=== PATIENT | female | born 1985 | race Two or more races ===

== ENCOUNTER 2024-04-22 04:42 | Inpatient (IN) ==
[2024-04-22] MEDS ORDERED: LIDOCAINE 1% LOCAL 20 ML VIAL INFIL PRN (05:56)
[2024-04-22] MEDS ORDERED: OXYTOCIN 30 UNITS/NSS 30 UNITS/500 ML BAG IV PRN ×2 (05:56→10:48)
--- NOTE | 2024-04-22 06:06 | History & Physical Report ---
Date of Service April 22, 2024 Assessment & Plan (1) Elderly primigravida: (2) Anemia affecting : Plan 39 yo G1 at 37 5/7 wga w/ srom VSS Fetus cat 1 Labor - SVE attempted and pt made good effort to tolerate but unable to reach cervix. Discussed option to walk and see if ctx become more regular and try again, stadol, epidural. She would like to try to walk to start GBS neg epidural prn History of Present Illness Chief Complaint: LOF Primary Care Provider: NO PCP 39 yo G1 at 37 5/7 wga presents w/ LOF since 4am. 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 cycles denies hx stis Allergies Allergy/AdvReac Type Severity Reaction Status Date / Time No Known Allergies Allergy Verified 04/22/24 05:08 Home Medications Medication Instructions Recorded Confirmed Type albuterol sulfate 90 mcg/actuation 2 puff inhalation QID PRN 04/12/24 04/22/24 History aerosol inhaler Shortness Of Breath Or Wheezing vit no.95-ferrous 1 tab PO DAILY 04/12/24 04/22/24 History fumarate 28 mg-folic acid 800 mcg tablet () iron sucrose 100 mg iron/5 mL 300 mg (15 mL) IV ONCE 1 dose 04/21/24 04/22/24 Rx intravenous solution (Venofer) Patient History Medical History (Updated 04/22/24 @ 05:08 by Lexis Tompkins, RN) Anemia getting iron transfusions Seasonal allergies Asthma History of chicken pox Surgical History S/P wisdom tooth extraction x1 Family History (Updated 10/01/23 @ 11:16 by April Hampton) Father Hypertension Hypercholesteremia Mother Rheumatoid arthritis Sister Hypercholesteremia Grandfather (Maternal) Prostate cancer Denies family history of Ovarian cancer Breast cancer Colorectal cancer Social History (Updated 04/22/24 @ 05:08 by Lexis Tompkins, RN) Smoking Status: Never smoker Do You Dip or Chew Tobacco: No; Hx Alcohol Use: No Hx Substance Use: No Preferred Language: Lao Communication Ability: Effective Aviation Program Manager Required: No Beliefs That Will Affect Care: None marital status: marital status details: [place] (40) [phone] Current Living Situation: Spouse Current Living Situation Comment: apartment with current occupational status: employed 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 Other Information That Helps Us Care for You: No Feels Safe at Home: Yes Safety Concerns: Feels Safe At This Time Assistive Devices: None Physical Exam Genitourinary: OB Exam Abdomen: + vertex Manual OB Exam: + amniotic fluid (grossly ruptured) nitrazine positive OB Exam Monitor Tracing: + external FHT monitor used, + external uterine monitor used (q6) and + category I (120/mod/+ac naresh/-decel) SVE attempted but unable to tolerate Results & Data Vital Signs (Past 12 Hours) Vital Signs Temp Pulse Resp BP O2 Del Method 04/22/24 05:09 98.1 F 18 Room Air 04/22/24 05:03 98.1 F 77 18 111/62 Laboratory Results OB Labs: Blood Type O Positive 10/08/23 Antibody Screen NEGATIVE 10/08/23 Hemoglobin 10.0 g/dl (12.0-16.0) L 04/14/24 Hematocrit 32.3 % (37.0-47.0) L 04/14/24 Mean Corpuscular Volume 89.4 fL (80.0-100.0) 10/08/23 Platelet Count 236 K/uL (130-400) 10/08/23 Rubella IgG Antibody Immune (Immune) 10/08/23 Rapid Plasma Reagin Nonreactive (Nonreactive) 10/08/23 Hepatitis B Surface Antigen. NON-REACTIVE (NON-REACTIVE) 10/08/23 Hepatitis C Antibody (EIA) NON-REACTIVE (NON-REACTIVE) 10/08/23 HIV (1&2) Ag and Ab Confirmation NON-REACTIVE (NON-REACTIVE) 10/08/23 Glucose 1 Hour 50 gm Load 100 mg/dl (70-130) 02/18/24 OB Optional Labs: Chlamydia trachomatis RNA Not Detected (NotDetected) 10/08/23 Neisseria gonorrhoeae RNA Not Detected (NotDetected) 10/08/23 Labs Reviewed: cfdna-low risk--mln GBS neg Coding Level of Care Code None Diagnoses Elderly primigravida O09.519 Anemia affecting O99.019
[2024-04-22 06:48] LABS: Hematocrit (blood only) 31.7 % (37.0-47.0); Hemoglobin 10.3 g/dl (12.0-16.0); Mean Corpuscular Hemoglobin 27.5 pg (25.0-34.0); Mean Corpuscular Hgb Conc 32.5 g/dL (32.0-36.0); Mean Corpuscular Volume 84.5 fL (80.0-100.0); Mean Platelet Volume 13.4 fL (9.4-12.4); Platelet Count 179 K/uL (130-400); RDW Coefficient of Variation 16.1 % (11.5-14.5); RDW Standard Deviation 48.3 fL (36.4-46.3); Red Blood Count 3.75 M/uL (4.20-5.40); White Blood Count 8.41 K/ul (4.8-10.8)
[2024-04-22] MEDS: LACTATED RINGER'S 1,000 ML IV PRN (08:50)
--- NOTE | 2024-04-22 09:07 | Anesthesiology Consultation ---
Date of Service April 22, 2024 Assessment & Plan (1) Encounter for pre-operative examination: Chart Review Chart Review: Acceptable Risk for Labor Epidural History Height/Weight Height: 5 ft 5 in Weight: 79.379 kg Allergies Allergy/AdvReac Type Severity Reaction Status Date / Time No Known Allergies Allergy Verified 04/22/24 05:08 Medications Home Medications Medication Instructions Recorded Confirmed Last Taken albuterol sulfate 90 mcg/actuation 2 puff inhalation QID PRN 04/12/24 04/22/24 03/29/24 18:00 aerosol inhaler Shortness Of Breath Or Wheezing vit no.95-ferrous 1 tab PO DAILY 04/12/24 04/22/24 04/21/24 fumarate 28 mg-folic acid 800 mcg tablet () iron sucrose 100 mg iron/5 mL 300 mg (15 mL) IV ONCE 1 dose 04/21/24 04/22/24 04/16/24 intravenous solution (Venofer) Active Medications Generic Name Dose Route Start Last Admin Trade Name Freq PRN Reason Stop Dose Admin Lactated Ringer's 1,000 mls @ 125 mls/hr 04/22/24 05:56 04/22/24 08:50 Lr IV 04/24/24 05:55 999 mls/hr .Q8H PRN Administration L&D Protocol Protocol Past Medical History Medical History Anemia getting iron transfusions Seasonal allergies Asthma History of chicken pox Past Family History Family History Father Hypertension Hypercholesteremia Mother Rheumatoid arthritis Sister Hypercholesteremia Grandfather (Maternal) Prostate cancer Denies family history of Ovarian cancer Breast cancer Colorectal cancer Past Surgical History Surgical History S/P wisdom tooth extraction x1 Social History Smoking Status: Never smoker Do You Dip or Chew Tobacco: No Hx Alcohol Use: No Hx Substance Use: No Physical Exam Vital Signs Last Vital Signs Temp 36.5 C 04/22/24 07:09 Pulse 81 04/22/24 07:11 Resp 20 04/22/24 07:09 BP 103/61 04/22/24 07:11 O2 Del Method Room Air 04/22/24 05:09 Testing Laboratory Results 04/22/24 06:01
[2024-04-22] MEDS: LIDOCAINE 2%/EPINEPHRINE 1:200,000 20 ML PF ONE (09:44)
[2024-04-22] MEDS: BUPIVACAINE 0.25% PF 30 ML VIAL ONE (09:44)
[2024-04-22] MEDS: fentaNYL citrate PF 100 MCG/2 ML VIAL ONE (09:44)
[2024-04-22] MEDS: fentANYL 2 MCG/ML BUPIVacaine 0.125%-NSS 100ML BAG ONE (09:45)
[2024-04-22] MEDS ORDERED: LIDOCAINE 2% MPF LOCAL 5 ML VIAL EPI PRN (09:46)
[2024-04-22] MEDS ORDERED: NALOXONE HCL 0.4 MG/1 ML VIAL/CARP IV PRN (09:46)
[2024-04-22] MEDS ORDERED: BUPIVACAINE 0.25% PF 30 ML VIAL EPI PRN (09:46)
[2024-04-22] MEDS ORDERED: ROPIVACAINE 0.5% PF 5 MG/ML 20 ML VIAL EPI PRN (09:46)
[2024-04-22] MEDS ORDERED: SODIUM CHLORIDE 0.9% PF INJ 10 ML VIAL EPI PRN (09:46)
[2024-04-22] MEDS ORDERED: ONDANSETRON INJ 2 MG/ML 2 ML VIAL IV PRN (09:46)
[2024-04-22] MEDS ORDERED: ePHEDrine sulfate 50 MG/ML AMP IV PRN (09:46)
[2024-04-22] MEDS ORDERED: NALOXONE HCL 1 MG in SODIUM CHLORIDE 0.9% 1,000 ML IV PRN (09:46)
[2024-04-22] MEDS ORDERED: fentaNYL citrate PF 100 MCG/2 ML VIAL EPI PRN (09:46)
[2024-04-22] MEDS: SODIUM CHLORIDE 0.9% PF INJ 10 ML VIAL ONE (10:39)
[2024-04-22] MEDS: ePHEDrine sulfate 50 MG/ML AMP ONE (10:39)
[2024-04-22] MEDS ORDERED: ALBUTEROL HFA 8 GM INHALER INH PRN (10:49)
[2024-04-22] MEDS: SODIUM CHLORIDE 0.9% PF INJ 10 ML VIAL EPI STA (11:13)
[2024-04-22] MEDS: fentaNYL citrate PF 100 MCG/2 ML VIAL EPI STA (11:13)
[2024-04-22] MEDS: LIDOCAINE 2%/EPINEPHRINE 1:200,000 20 ML PF EPI STA (11:13)
[2024-04-22] MEDS: BUPIVACAINE 0.25% PF 30 ML VIAL EPI STA (11:13)
[2024-04-22] MEDS: OXYTOCIN 30 UNITS/NSS 30 UNITS/500 ML BAG IV PRN (11:24)
--- NOTE | 2024-04-22 11:31 | Labor Progress Brief Note ---
Date of Service April 22, 2024 Subjective Reason For Note: Routine Evaluation patient now comfortable with epidural analgesia cervix exam- FT/50/-2/firm will begin pitocin augmentation at this time Assessment & Plan Admission and Anticipated Discharge Date Admission Date: April 22, 2024 Results & Data Vital Signs (Past 12 Hours) Vital Signs Temp Pulse Resp BP Pulse Ox O2 Del Method 04/22/24 11:28 75 96/59 L 04/22/24 11:26 80 99 04/22/24 11:21 76 99 04/22/24 11:16 83 99 04/22/24 11:13 77 96/60 L 04/22/24 11:11 83 99 04/22/24 11:06 85 100 04/22/24 11:01 92 H 100 04/22/24 10:58 82 102/64 04/22/24 10:56 82 100 04/22/24 10:51 87 100 04/22/24 10:46 94 H 100 04/22/24 10:42 85 100/61 04/22/24 10:41 79 99 04/22/24 10:36 86 99 04/22/24 10:31 79 99 04/22/24 10:27 86 97/58 L 04/22/24 10:26 80 99 04/22/24 10:21 81 99 04/22/24 10:16 78 99 04/22/24 10:12 88 100/57 L 04/22/24 10:11 83 99 04/22/24 10:08 81 99/59 L 04/22/24 10:06 79 99 04/22/24 10:03 81 103/55 L 04/22/24 10:01 81 99 04/22/24 09:59 78 100/53 L 04/22/24 09:56 83 99 04/22/24 09:51 82 102/62 04/22/24 09:49 77 101/62 04/22/24 09:48 82 98 04/22/24 09:47 83 99/64 L 04/22/24 09:45 86 96/62 L 04/22/24 09:43 88 100/67 99 04/22/24 09:41 74 95/57 L 04/22/24 09:37 81 114/67 04/22/24 09:35 96 H 100 04/22/24 09:34 92 H 83 L 04/22/24 09:30 88 122/82 04/22/24 07:11 81 103/61 04/22/24 07:09 20 04/22/24 07:09 97.7 F 20 04/22/24 05:09 98.1 F 18 Room Air 04/22/24 05:03 98.1 F 77 18 111/62 Coding Level of Care Code None
[2024-04-22] MEDS: fentANYL 2 MCG/ML BUPIVacaine 0.125%-NSS 100ML BAG EPI PRN (18:39)
--- NOTE | 2024-04-23 10:53 | History & Physical Bridge Note ---
Date of Service April 23, 2024 History & Physical Bridge Note I have examined the patient, reviewed the History & Physical and in the interval since the performance of the History & Physical I have noted the following changes of clinical significance: no changes noted Discussed with patient - resuscitative measures were working for FHT, however baby has now had 3 prolonged decelerations with slow return to baseline. Given that delivery would be remote at this point, since station is not low, recommend delivery by section. She is agreeable. Reviewed consent, questions answered. Will proceed to OR for delivery by section at this time.
[2024-04-23] MEDS ORDERED: OXYTOCIN 10 UNITS/ML VIAL ONE ×2 (10:55→11:55)
[2024-04-23] MEDS: CITRIC ACID/SODIUM CITRATE 15 ML UDC PO SCH (10:56)
[2024-04-23] MEDS ORDERED: ceFAZolin 330 MG/ML 1 GM VIAL ONE (11:16)
[2024-04-23] MEDS ORDERED: ONDANSETRON INJ 2 MG/ML 2 ML VIAL ONE (11:16)
[2024-04-23] MEDS ORDERED: MoRPHine SULFATE PF 1 MG/ML 10 ML AMP/VIAL ONE (11:27)
[2024-04-23 11:36] LABS: Base Excess Cord Arterial Bld -4.5 mEq/L (-9-1.8); Base Excess Cord Venous Blood -3.9 mEq/L (-7.7-1.9); CO2 Cord Arterial Blood 57 mmHg (39.1-73.5); Cord Venous Blood HCO3 22 mmol/L (18.4-26.8); Cord Venous Blood PCO2 40 mmHg (30.4-57.2); Cord Venous Blood PO2 35 mmHg (14.1-43.3); Cord Venous Blood pH 7.34 (7.20-7.44); HCO3 Cord Arterial Blood 24 mmol/L (19.7-28.5); O2 Saturation Cord Venous Bld 67.6 % (<68); Oxygen Sat Cord Arterial Blood < 60.0 % (<60); PO2 Cord Arterial Blood 23 mmHg (4.1-31.7); pH Cord Arterial Blood 7.23 (7.1-7.38)
[2024-04-23] MEDS ORDERED: KETAMINE HCL 10MG/ML SYR ONE (11:41)
[2024-04-23] MEDS ORDERED: PHENYLEPHRINE 100MCG/ML 10ML SYR IV ONE (11:50)
--- NOTE | 2024-04-23 12:18 | Operative Report ---
Post Operative Report Pre & Post Diagnosis Operation Date: 04/23/24 11:00 Pre: Spontaneous premature rupture of membranes, intolerance to labor Post: Same I identified the patient and participated in the time-out.: Yes Procedure Operation Date: 04/23/24 11:00 Actual Procedures Primary Low T-Vertical Section in LD, delivery of live male child at 1113 - Denita Decker DO Surgeon Denita Decker, Wire Mesh Knitter Reginaldo Hernández MD Quantitative Blood Loss (QBL) 700 Findings Consistent with Post-Op Diagnosis Viable male , Apgars 1, 1, 2. Weight pending, please see nursery records. Normal appearing uterus, fallopian tubes, ovaries. Specimens cord blood, cord gas, placenta Drains skaggs clear yellow Anesthesia Type Labor Epidural Complications none Disposition Accompanied Patient To Recovery: No Disposition: L&D Indications 39yo @ 37 6/7, was admitted to L&D yesterday after spontaneous PROM. Labor was augmented and she progressed to complete dilation and was starting to push. I recommended that she stop the pitocin and undergo resuscitative measures to improve late decelerations. Discussed with patient that after resuscitation, we could attempt pushing again or if no improvement in heart tracing would need to proceed to section. Once we stopped the pitocin and repositioned the patient, these interventions were successful to improve FHT to Category 1. However, prior to being able to resume pushing, patient then developed prolonged decelerations - and I advised patient and that we needed to proceed at this time with delivery via section. Another was being done in the L&D OR, so we proceeded to the Main OR for delivery for intolerance to labor. Description of Procedure The patient was seen in her labor and delivery room, risks benefits and alternatives to surgery were reviewed. Informed consent obtained. Questions were answered. She was taken to the operating room, spinal anesthesia was administered. She was then prepared and draped in the usual sterile fashion in the supine position with a leftward tilt. Timeout was confirmed. A Pfannenstiel skin incision was made with a scalpel, and carried through to the underlying layer of fascia. Fascia was nicked at midline, and this incision was extended bilaterally. The superior aspect of the fascial incision was grasped with Stuart clamps x2, elevated off the underlying rectus abdominis muscles, and dissected sharply and bluntly. In similar fashion, the inferior aspect of the fascial incision was dissected. The rectus abdominis muscles were , and the peritoneum was entered bluntly digitally. This was extended bilaterally. The bladder flap was not taken down. Using a new scalpel, a low transverse uterine incision was created. The head was wedged in the pelvis. arm delivered through hysterotomy. On first attempt, I was unable to get the head delivered, therefore the uterus was T'd with bandage scissors and the baby was delivered breech - legs first, then body, then head. No nuchal noted. The was briefly stimulated on the field - had tone but no crying. The cord was doubly clamped and cut, and the infant immediately was handed off to the waiting research and development researcher. A segment was retained for cord gases. True knot noted in the cord. Cord blood was obtained. The placenta was delivered spontaneously intact. The uterus was exteriorized, and cleared of all clots and debris. The hysterotomy incision was reapproximated using 0 Vicryl in a running locked stitch. The vertical portion of the incision was closed with 3-layer closure, with two layers of 0-Vicryl, followed by baseball serosal stitch 2-0 Vicryl. A second layer of 0-Vicryl was used to imbricate the horizontal incision. Posterior uterus was evaluated and normal. The uterus was returned to the abdomen, and gutters were cleared of clots and debris. Excellent hemostasis was observed. The fascial incision was reapproximated using 0 Vicryl in a running stitch. The subcutaneous tissue was irrigated, and reapproximated using 2-0 plain gut in a running stitch. The skin was reapproximated using 4-0 Vicryl in a running subcuticular stitch. Steri-Strips and a bandage were applied. The patient tolerated the procedure well, and will be taken to the recovery area in stable and good condition. I attest to the content of the Intraoperative Record and any orders documented therein. Any exceptions are noted below. OB Procedure Charges 76662
[2024-04-23] MEDS ORDERED: ONDANSETRON INJ 2 MG/ML 2 ML VIAL IV PRN (12:45)
[2024-04-23] MEDS ORDERED: DC INTRASPINAL MORPHINE SCH (12:45)
[2024-04-23] MEDS ORDERED: NALOXONE HCL 0.08 MG in SYRINGE 1.8 ML IV PRN (12:45)
[2024-04-23] MEDS ORDERED: NALOXONE HCL 0.4 MG/1 ML VIAL/CARP IV PRN (12:45)
[2024-04-23] MEDS ORDERED: NALBUPHINE HCL 5 MG in SYRINGE 0 ML IV PRN (12:45)
[2024-04-23] MEDS ORDERED: NO NARCOTICS OR SEDATIVES SCH (12:45)
[2024-04-23] MEDS ORDERED: LACTATED RINGER'S 500 ML IV PRN (12:45)
[2024-04-23] MEDS ORDERED: PROMETHAZINE HCL 6.25 MG in SODIUM CHLORIDE 0.9% 50 ML IV PRN (12:45)
[2024-04-23] MEDS ORDERED: NALOXONE HCL 1 MG in SODIUM CHLORIDE 0.9% 1,000 ML IV PRN (12:45)
[2024-04-23] MEDS ORDERED: diphenhydrAMINE 50 MG/ML VIAL IV PRN (12:45)
[2024-04-23] MEDS ORDERED: ePHEDrine sulfate 50 MG/ML AMP IV PRN (12:45)
--- NOTE | 2024-04-23 12:46 | Anesthesia Procedure Note ---
Date of Service April 23, 2024 Anesthesia Post Epidural Note Vital Signs Vital Signs: Temp Pulse Resp BP Pulse Ox O2 Del Method 36.6 C 107 H 18 104/63 100 Room Air 04/23/24 12:20 04/23/24 12:41 04/23/24 12:20 04/23/24 12:41 04/23/24 12:40 04/22/24 19:15 Notes Mental Status: alert / awake / arousable and participated in evaluation Patient Amnestic to Procedure: No Nausea / Vomiting: adequately controlled Pain: adequately controlled Airway Patency, RR, SpO2: stable & adequate BP & HR: stable & adequate Hydration State: stable & adequate Neuraxial Anesthesia: was administered and sensory block is resolving Anesthetic Complications: no major complications apparent and Pt Satisfied with anesthetic care Epidural: Removed without complications and With tip intact
--- NOTE | 2024-04-23 12:55 | Anesthesiology Progress Note ---
Date of Service April 23, 2024 Anesthesia Post Procedure Vital Signs Vital Signs: Temp Pulse Resp BP Pulse Ox O2 Del Method 04/23/24 12:41 107 H 104/63 04/23/24 12:40 110 H 100 04/23/24 12:35 111 H 100 04/23/24 12:31 109 H 106/60 04/23/24 12:30 110 H 100 04/23/24 12:25 119 H 100 04/23/24 12:20 36.6 C 18 04/23/24 12:20 115 H 100 04/23/24 12:17 122 H 95/50 L 04/23/24 12:16 121 H 96/54 L 04/23/24 12:15 123 H 99 04/23/24 10:58 146 H 04/23/24 10:58 37.1 C 144 H 20 138/81 100 04/23/24 10:53 115 H 100 04/23/24 10:48 114 H 100 04/23/24 10:43 113 H 118/67 100 04/23/24 10:38 111 H 100 04/23/24 10:33 122 H 100 04/23/24 10:28 91 H 119/64 100 04/23/24 10:23 91 H 100 04/23/24 10:18 95 H 100 04/23/24 10:13 96 H 120/69 100 04/23/24 10:08 95 H 100 04/23/24 10:03 97 H 100 04/23/24 09:58 99 H 118/67 100 04/23/24 09:53 90 100 04/23/24 09:48 88 100 04/23/24 09:44 92 H 117/66 04/23/24 09:43 97 H 100 04/23/24 09:38 99 H 98 04/23/24 09:33 91 H 97 04/23/24 09:28 92 H 112/65 97 04/23/24 09:23 99 H 98 04/23/24 09:18 100 H 97 04/23/24 09:13 97 04/23/24 09:13 111 H 04/23/24 09:13 117 H 109/66 04/23/24 09:10 116 H 85 L 04/23/24 09:08 109 H 98 04/23/24 09:03 110 H 97 04/23/24 09:02 18 06/26/24 09:02 37.4 C 18 04/23/24 08:58 94 H 20 114/63 97 04/23/24 08:53 106 H 96 04/23/24 08:50 92 H 93 04/23/24 08:48 91 H 96 04/23/24 08:44 91 H 93 04/23/24 08:43 90 107/58 L 96 04/23/24 08:38 92 H 97 04/23/24 08:37 95 H 94 04/23/24 08:33 101 H 96 04/23/24 08:28 107 H 117/62 97 04/23/24 08:23 99 H 97 04/23/24 08:18 97 H 98 04/23/24 08:14 100 H 20 114/62 04/23/24 08:13 108 H 97 04/23/24 08:08 116 H 96 04/23/24 08:03 121 H 98 04/23/24 08:00 115 H 115/76 04/23/24 07:58 111 H 97 04/23/24 07:56 125 H 90 04/23/24 07:53 120 H 97 04/23/24 07:48 138 H 98 04/23/24 07:43 120 H 04/23/24 07:43 138 H 105/60 99 04/23/24 07:38 127 H 99 04/23/24 07:33 119 H 98 04/23/24 07:27 125 H 04/23/24 07:27 123 H 118/59 L 98 04/23/24 07:21 120 H 100 04/23/24 07:16 119 H 99 04/23/24 07:13 114 H 20 124/65 04/23/24 07:11 136 H 98 04/23/24 07:06 131 H 98 04/23/24 07:01 102 H 99 04/23/24 06:57 36.5 C 115 H 20 108/56 L 04/23/24 06:56 111 H 99 04/23/24 06:51 96 H 97 04/23/24 06:46 124 H 97 04/23/24 06:43 121 H 108/55 L 04/23/24 06:41 136 H 98 04/23/24 06:37 151 H 88 L 04/23/24 06:36 129 H 98 06/26/24 06:31 133 H 98 04/23/24 06:26 155 H 99 04/23/24 06:24 152 H 86 L 04/23/24 06:21 159 H 99 04/23/24 06:16 121 H 98 04/23/24 06:14 123 H 107/54 L 04/23/24 06:11 106 H 96 04/23/24 06:06 97 H 97 04/23/24 06:01 100 H 97 04/23/24 05:58 96 H 110/64 04/23/24 05:57 18 04/23/24 05:57 37.4 C 18 04/23/24 05:56 112 H 96 04/23/24 05:51 125 H 97 04/23/24 05:46 115 H 98 04/23/24 05:44 101 H 117/61 04/23/24 05:41 107 H 95 04/23/24 05:36 96 H 96 04/23/24 05:31 111 H 98 04/23/24 05:28 120 H 99/54 L 04/23/24 05:26 95 H 97 04/23/24 05:21 113 H 98 04/23/24 05:16 101 H 97 04/23/24 05:13 96 H 109/56 L 04/23/24 05:11 108 H 98 04/23/24 05:06 100 H 97 04/23/24 05:01 105 H 98 04/23/24 04:57 113 H 113/61 04/23/24 04:56 106 H 98 04/23/24 04:51 104 H 98 04/23/24 04:46 112 H 99 04/23/24 04:45 18 04/23/24 04:45 37.2 C 18 04/23/24 04:42 114 H 115/60 04/23/24 04:41 100 H 97 04/23/24 04:36 94 H 98 04/23/24 04:31 103 H 97 04/23/24 04:27 103 H 111/60 04/23/24 04:26 106 H 99 04/23/24 04:21 98 H 99 04/23/24 04:16 96 H 98 04/23/24 04:13 95 H 113/60 04/23/24 04:11 105 H 98 04/23/24 04:06 101 H 98 06 04:01 98 H 98 04/23/24 03:57 103 H 110/63 06 03:56 94 H 99 04/23/24 03:51 103 H 99 04/23/24 03:46 102 H 99 04/23/24 03:43 101 H 112/63 04/23/24 03:41 101 H 98 04/23/24 03:36 118 H 97 04/23/24 03:31 99 H 97 04/23/24 03:28 18 04/23/24 03:28 37.3 C 96 H 18 112/64 04/23/24 03:26 106 H 98 04/23/24 03:21 114 H 97 04/23/24 03:16 113 H 97 04/23/24 03:13 110 H 114/67 04/23/24 03:11 99 H 98 04/23/24 03:06 95 H 96 04/23/24 03:01 110 H 98 04/23/24 02:58 98 H 117/64 04/23/24 02:56 109 H 97 04/23/24 02:51 96 H 98 04/23/24 02:46 104 H 98 04/23/24 02:42 113 H 114/66 04/23/24 02:41 94 H 97 04/23/24 02:36 113 H 98 04/23/24 02:31 98 H 99 04/23/24 02:30 18 04/23/24 02:30 37.1 C 18 04/23/24 02:27 104 H 114/68 04/23/24 02:26 110 H 99 04/23/24 02:21 99 H 99 04/23/24 02:16 121 H 98 04/23/24 02:12 108 H 112/68 04/23/24 02:11 118 H 100 04/23/24 02:06 99 H 100 04/23/24 02:01 101 H 100 04/23/24 01:57 106 H 116/70 04/23/24 01:56 94 H 100 04/23/24 01:51 102 H 98 04/23/24 01:46 105 H 98 04/23/24 01:43 98 H 119/67 04/23/24 01:42 18 04/23/24 01:42 36.9 C 18 04/23/24 01:41 105 H 100 04/23/24 01:36 99 H 99 04/23/24 01:31 94 H 99 04/23/24 01:28 99 H 128/76 04/23/24 01:26 102 H 99 04/23/24 01:21 95 H 100 04/23/24 01:16 101 H 100 04/23/24 01:12 100 H 133/72 04/23/24 01:11 90 100 04/23/24 01:06 97 H 100 04/23/24 01:01 98 H 100 04/23/24 00:58 95 H 133/73 04/23/24 00:56 97 H 100 04/23/24 00:51 97 H 100 04/23/24 00:46 106 H 100 04/23/24 00:42 101 H 130/77 04/23/24 00:41 98 H 100 04/23/24 00:36 103 H 100 04/23/24 00:31 100 H 100 04/23/24 00:29 99 H 123/68 04/23/24 00:26 102 H 100 04/23/24 00:21 87 100 04/23/24 00:16 88 100 04/23/24 00:13 86 120/74 04/23/24 00:11 78 100 04/23/24 00:06 113 H 100 04/23/24 00:01 90 100 04/22/24 23:58 90 125/80 04/22/24 23:56 82 100 04/22/24 23:51 82 100 04/22/24 23:46 90 99 04/22/24 23:45 18 04/22/24 23:45 37.1 C 18 04/22/24 23:43 86 118/75 04/22/24 23:41 83 100 04/22/24 23:36 91 H 99 04/22/24 23:31 91 H 100 04/22/24 23:28 89 119/72 04/22/24 23:26 87 98 04/22/24 23:21 89 100 04/22/24 23:16 83 100 04/22/24 23:12 83 111/72 04/22/24 23:11 87 99 04/22/24 23:06 93 H 100 04/22/24 23:01 88 100 04/22/24 22:57 96 H 115/70 04/22/24 22:56 97 H 100 04/22/24 22:51 89 100 04/22/24 22:46 97 H 99 04/22/24 22:43 90 114/72 04/22/24 22:41 92 H 99 04/22/24 22:36 91 H 100 04/22/24 22:31 92 H 100 04/22/24 22:29 95 H 112/65 04/22/24 22:26 95 H 99 04/22/24 22:21 37.1 C 100 H 18 99 04/22/24 22:16 91 H 99 04/22/24 22:14 89 110/65 04/22/24 22:11 93 H 98 04/22/24 22:06 87 98 04/22/24 22:01 92 H 99 04/22/24 21:57 96 H 111/68 04/22/24 21:56 91 H 100 04/22/24 21:51 95 H 100 04/22/24 21:46 88 100 04/22/24 21:43 85 114/66 04/22/24 21:41 88 100 04/22/24 21:36 89 100 04/22/24 21:31 85 100 04/22/24 21:30 18 04/22/24 21:30 18 04/22/24 21:29 83 104/60 04/22/24 21:26 85 100 04/22/24 21:21 93 H 99 04/22/24 21:16 87 100 04/22/24 21:14 82 113/70 04/22/24 21:11 84 99 04/22/24 21:06 89 100 04/22/24 21:01 85 99 04/22/24 20:57 86 106/65 04/22/24 20:56 85 98 04/22/24 20:51 83 99 04/22/24 20:46 86 100 04/22/24 20:42 82 112/71 04/22/24 20:41 102 H 97 04/22/24 20:40 18 04/22/24 20:40 37.0 C 18 04/22/24 20:36 102 H 100 04/22/24 20:31 89 100 04/22/24 20:27 85 113/69 04/22/24 20:26 89 100 04/22/24 20:21 92 H 100 04/22/24 20:16 90 100 04/22/24 20:12 90 108/68 04/22/24 20:11 90 100 04/22/24 20:06 87 100 04/22/24 20:01 91 H 100 04/22/24 19:58 90 113/68 04/22/24 19:56 90 99 04/22/24 19:51 94 H 99 04/22/24 19:50 96 H 114/71 04/22/24 19:46 91 H 100 04/22/24 19:44 100 H 83/58 L 04/22/24 19:43 94 H 77/59 L 04/22/24 19:41 85 98 04/22/24 19:36 91 H 98 04/22/24 19:31 93 H 99 04/22/24 19:28 94 H 89/55 L 04/22/24 19:26 90 98 04/22/24 19:21 87 99 04/22/24 19:16 91 H 99 04/22/24 19:15 37.0 C 18 Room Air 04/22/24 19:13 91 H 90/55 L 04/22/24 19:11 83 99 04/22/24 19:06 82 98 04/22/24 19:01 87 99 04/22/24 18:58 85 98/56 L 04/22/24 18:56 88 99 04/22/24 18:51 93 H 99 04/22/24 18:46 90 99 04/22/24 18:42 83 95/56 L 04/22/24 18:41 85 100 04/22/24 18:36 89 99 04/22/24 18:33 85 96/54 L 04/22/24 18:31 95 H 99 04/22/24 18:30 20 04/22/24 18:30 37.0 C 20 04/22/24 18:26 85 98 04/22/24 18:21 85 98 04/22/24 18:16 82 99 04/22/24 18:13 88 95/55 L 04/22/24 18:11 82 99 04/22/24 18:06 80 99 04/22/24 18:01 91 H 99 04/22/24 17:58 89 95/57 L 04/22/24 17:56 81 100 04/22/24 17:51 84 99 04/22/24 17:46 79 99 04/22/24 17:43 84 95/60 L 04/22/24 17:41 77 99 04/22/24 17:36 79 100 04/22/24 17:31 84 100 04/22/24 17:30 20 04/22/24 17:30 36.6 C 20 04/22/24 17:28 75 92/56 L 04/22/24 17:26 88 100 04/22/24 17:21 74 100 04/22/24 17:16 89 99 04/22/24 17:13 76 87/55 L 04/22/24 17:11 78 100 04/22/24 17:06 86 100 04/22/24 17:01 84 100 04/22/24 16:58 80 94/52 L 04/22/24 16:56 80 99 04/22/24 16:51 84 99 04/22/24 16:46 78 100 04/22/24 16:44 77 95/52 L 04/22/24 16:41 83 100 04/22/24 16:36 74 100 04/22/24 16:31 82 100 04/22/24 16:28 77 92/53 L 04/22/24 16:26 77 99 04/22/24 16:21 79 100 04/22/24 16:16 77 98 04/22/24 16:14 77 112/64 04/22/24 16:11 81 98 04/22/24 16:06 77 98 04/22/24 16:01 78 97 04/22/24 15:58 74 108/63 04/22/24 15:56 73 97 04/22/24 15:51 75 99 04/22/24 15:46 76 97 04/22/24 15:43 78 105/63 04/22/24 15:41 75 99 04/22/24 15:36 77 98 04/22/24 15:31 76 98 04/22/24 15:28 74 107/61 04/22/24 15:26 75 99 04/22/24 15:21 74 99 04/22/24 15:16 76 100 04/22/24 15:13 71 109/69 04/22/24 15:11 76 99 04/22/24 15:06 77 98 04/22/24 15:01 75 98 04/22/24 15:00 20 04/22/24 15:00 36.6 C 20 04/22/24 14:58 77 109/70 04/22/24 14:56 76 99 04/22/24 14:51 75 99 04/22/24 14:46 79 100 04/22/24 14:43 74 104/63 04/22/24 14:41 84 98 04/22/24 14:36 84 98 04/22/24 14:31 91 H 98 04/22/24 14:29 72 94/55 L 04/22/24 14:26 75 98 04/22/24 14:21 74 98 04/22/24 14:16 75 98 04/22/24 14:13 76 101/63 04/22/24 14:11 68 97 04/22/24 14:06 73 98 04/22/24 14:01 36.6 C 90 16 99 04/22/24 13:58 90 101/57 L 04/22/24 13:56 79 99 04/22/24 13:51 73 97 04/22/24 13:46 93 H 97 04/22/24 13:43 75 104/58 L 04/22/24 13:41 83 98 04/22/24 13:36 82 98 04/22/24 13:31 80 98 04/22/24 13:30 16 04/22/24 13:30 16 04/22/24 13:28 73 97/54 L 04/22/24 13:26 79 89/53 L 97 04/22/24 13:21 79 98 04/22/24 13:16 82 98 04/22/24 13:13 78 88/53 L 04/22/24 13:11 81 97 04/22/24 13:06 74 99 04/22/24 13:01 75 98 04/22/24 12:59 67 97/57 L 04/22/24 12:56 79 100 04/22/24 12:51 74 99 Transfer of Care Handoff Completed per policy Notes Mental Status: alert / awake / arousable and participated in evaluation Patient Amnestic to Procedure: No Nausea / Vomiting: adequately controlled Pain: adequately controlled Airway Patency, RR, SpO2: stable & adequate BP & HR: stable & adequate Hydration State: stable & adequate Neuraxial Anesthesia: was administered and sensory block is resolving Anesthetic Complications: no major complications apparent and Pt Satisfied with anesthetic care Notes: Called by OR charge nurse and informed OB was planning on doing an emergent C- section in the main operating room (room #1). Called OB anesthesiologist and he was in the OB OR finishing a . I had two BEEF GRINDER's help set up OR #1 to ensure it was ready for emergent intubation if necessary and had OB specific drugs that could be needed with a C section (pitocin, methergine, etc). Glidescope was present in OR as well. I personally went to OB room 420 and began care of this patient. Brief conversation had regarding pertinent medical history and anesthesia plan for the section. Patient stated epidural had been working well and plan was to begin bolusing epidural with 2% lido with epi in divided doses. I personally escorted patient to main OR with OB nursing staff. BP had been stable. Upon entry in OR, BP repeated and again was WNL. In total, she received a total of 15ml of 2% lidocaine with epi. ASA monitors were placed on the patient in the OR and she was prepped and draped. Surgeons performed an Tawana test, which was negative and meant epidural would be adequate for surgery. Incision was made without difficulty and patient's partner joined her for the remainder of the operation. Her blood pressures were treated with a few doses of phenylephrine IV. EtCO2 monitoring was done throughout the case and patient tolerated the procedure well. She did request a small amount of sedation near the end of the case, which was achieved with 10mg of IV ketamine. At the end of the procedure, patient was taken back to room 420 with NC oxygen during transport. VSS in recovery and she was left in stable condition. All questions were answered and I also updated patient's partner.
[2024-04-23] MEDS: LACTATED RINGER'S 1,000 ML IV SCH (12:58)
[2024-04-23] MEDS: ceFAZolin 2000MG 2,000 MG/15 ML SYR IV SCH (12:59)
[2024-04-23] MEDS: AZITHROMYCIN 500 MG in DEXTROSE 5% 250 ML IV SCH (12:59)
[2024-04-23] MEDS: HYDROmorphone INJ 0.5 MG/0.5 ML SYR IV PRN (13:57)
[2024-04-23] MEDS ORDERED: BENZOCAINE 20% SPRY 85 APPLN/85 GM CAN EXT PRN (14:35)
[2024-04-23] MEDS ORDERED: MAGNESIUM HYDROXIDE SUSP 30 ML UDC PO PRN (14:35)
[2024-04-23] MEDS ORDERED: LACTATED RINGER'S 1,000 ML IV SCH (14:35)
[2024-04-23] MEDS ORDERED: HYDROCORTISONE ACETATE 25 MG SUPP PR PRN (14:35)
[2024-04-23] MEDS ORDERED: SENNA 8.6 MG TAB PO PRN (14:35)
[2024-04-23] MEDS: OXYTOCIN 30 UNITS/LR 1,003 ML IV SCH (15:39)
[2024-04-23] MEDS: METHYLERGONOVINE MALEATE 0.2 MG/ML AMP ONE (15:41)
[2024-04-23] MEDS: SODIUM CHLORIDE 0.9% 1,000 ML IV SCH (15:51)
[2024-04-23] MEDS: MoRPHine SULFATE PF 1 MG/ML 10 ML AMP/VIAL EPI ONE (15:51)
[2024-04-23] MEDS: SIMETHICONE 80 MG CHEW PO SCH (15:51)
[2024-04-23] MEDS: DOCUSATE SODIUM 100 MG CAP PO SCH (22:17)
[2024-04-23] MEDS: DIPHTHER/TETAN/PERTUS Vaccine (Tdap, Adol/Adult) 0.5mL IM ONE (23:25)
[2024-04-24] MEDS: KETOROLAC 30 MG/ML VIAL IV PRN (06:06)
--- NOTE | 2024-04-24 06:13 | Obstetrical Progress Note ---
Date of Service <Miko Rose DO - Last Filed: 04/24/24 06:17> April 24, 2024 Assessment & Plan <Miko Rose DO - Last Filed: 04/24/24 06:17> (1) Encounter for assessment: Plan 39 y/o POD#1: Tolerating clear liquids, Skag[place] catheter still in place, has not yet ambulated Vitals reviewed, WNL Pain well controlled with Toradol Routine post-op care - OOB, ambulation, diet progression as tolerated Will have 6 week follow up with Dr. Decker <Denita Decker, - Last Filed: 04/24/24 08:47> (1) Encounter for assessment: Subjective <Miko Rose DO - Last Filed: 04/24/24 06:17> Ambulation: limited ambulation (has not yet ambulated) Voiding: skaggs catheter in place Passing Gas:: Yes Diet Tolerance:: clear liquids Lochia:: Moderate Feeding Type:: breast feeding pain well controlled with Toradol Review of Systems -Denies fever or chills -Denies dyspnea, chest pain, or palpitations -Denies dysuria -Denies headache or changes in vision Physical Exam <Miko Rose DO - Last Filed: 04/24/24 06:17> General: Alert and oriented. No acute distress Cardiac: Regular rate and rhythm, no murmurs appreciated Respiratory: Lungs clear to auscultation bilaterally, No increased work of breathing Abdominal: Soft, non-distended. Bowel sounds present. Uterus: Uterine fundus firm, palpable below umbilicus, significant tenderness to palpation Extremities: SCDs in place. Results & Data <Miko Rose DO - Last Filed: 04/24/24 06:17> Vital Signs (Past 12 Hours) Vital Signs Temp Pulse Resp BP Pulse Ox O2 Del Method 04/24/24 05:15 18 99 04/24/24 04:20 18 97 04/24/24 03:30 16 96 04/24/24 03:30 36.6 C 106 H 16 109/63 96 Room Air 04/24/24 02:15 16 98 04/24/24 01:15 16 97 04/24/24 00:20 36.7 C 104 H 16 112/68 98 Room Air 04/24/24 00:10 18 98 04/23/24 23:15 18 98 04/23/24 22:15 18 100 04/23/24 21:15 18 96 04/23/24 20:15 18 98 04/23/24 19:45 Room Air 04/23/24 19:45 37.4 C 100 H 18 104/68 98 Room Air 04/23/24 19:15 18 97 Supervising Physician <Denita Decker DO - Last Filed: 04/24/24 08:47> Co-Signing Physician Notes Resident Physician Supervision Note: I was present with Dr. Rose during the history and exam. I discussed the case with the resident and agree with the findings and plan as documented in the note. Any exceptions or clarifications are listed here: POD1 doing well. Is considering DC home today so she can go to [facility] NICU to be with baby. Incision bandage is clean/dry. Discussed DC instructions. Rx Percocet sent to [facility] #20 tabs. Will watch for her to feel ok and ambulate prior to DC. Documented By: Denita Decker DO Resident Activity Tracking <Miko Rose DO - Last Filed: 04/24/24 06:17> Resident Involvement: Resident Care Provided Care Provided: OB Delivery
[2024-04-24 06:44] LABS: Hematocrit (blood only) 22.5 % (37.0-47.0); Hemoglobin 7.4 g/dl (12.0-16.0); Mean Corpuscular Hemoglobin 27.8 pg (25.0-34.0); Mean Corpuscular Hgb Conc 32.9 g/dL (32.0-36.0); Mean Corpuscular Volume 84.6 fL (80.0-100.0); Mean Platelet Volume 13.3 fL (9.4-12.4); Platelet Count 161 K/uL (130-400); RDW Coefficient of Variation 17.2 % (11.5-14.5); RDW Standard Deviation 50.6 fL (36.4-46.3); Red Blood Count 2.66 M/uL (4.20-5.40); White Blood Count 16.79 K/ul (4.8-10.8)
[2024-04-24] MEDS ORDERED: diphenhydrAMINE Capsule 25 MG CAP PO PRN (06:45)
[2024-04-24] MEDS ORDERED: diphenhydrAMINE 50 MG/ML VIAL IV PRN (06:45)
[2024-04-24] MEDS ORDERED: KETOROLAC 30 MG/ML VIAL IV PRN (06:45)
[2024-04-24] MEDS ORDERED: ONDANSETRON INJ 2 MG/ML 2 ML VIAL IV PRN (06:45)
[2024-04-24] MEDS ORDERED: PROMETHAZINE HCL 25 MG in SODIUM CHLORIDE 0.9% 50 ML IV PRN (06:45)
[2024-04-24 07:09] LABS: Basophils # (auto) 0.02 K/uL (0.00-0.20); Basophils % (auto) 0.1 %; Eosinophils # (auto) 0.12 K/uL (0.00-0.50); Eosinophils % (auto) 0.7 %; Immature Granulocytes # (auto) 0.24 K/uL (0.01-0.20); Immature Granulocytes % (auto) 1.4 %; Lymphocytes # (auto) 1.17 K/uL (1.20-3.40); Monocytes # (auto) 0.97 K/uL (0.11-0.59); Monocytes % (auto) 5.8 %; Neutrophils # (auto) 14.27 K/uL (1.40-6.50); Polychromasia 1+
[2024-04-24] MEDS: PRENATAL VITAMIN 1 TAB PO SCH (08:48)
[2024-04-24] MEDS: FERROUS SULFATE 325 MG TAB PO SCH (08:50)
[2024-04-24] MEDS: oxyCODONE/ACETAMINOPHEN 5mg/325mg TAB PO PRN (15:13)
[2024-04-24] MEDS: IBUPROFEN 600 MG TAB PO PRN (15:14)
[2024-04-24] MEDS: bisacodyL 5 MG TABEC PO SCH (20:24)
[2024-04-24 21:45] VITALS: O2SAT 100
--- NOTE | 2024-04-25 06:59 | Obstetrical Progress Note ---
Date of Service <Miko Rose DO - Last Filed: 04/25/24 07:54> April 25, 2024 Assessment & Plan <Miko Rose DO - Last Filed: 04/25/24 07:54> (1) Encounter for assessment: Plan 39 y/o POD#2: Eating well, voiding well, ambulating well Vitals reviewed, WNL Pain well controlled with Motrin Routine post-op care - OOB, ambulation, diet progression as tolerated Likely discharge today pending H&H recheck Will have 6 week follow up with Dr. Decker <Francy Hernández MD, FACOG - Last Filed: 04/25/24 08:04> (1) Encounter for assessment: Subjective <Miko Rose DO - Last Filed: 04/25/24 07:54> Ambulation: ambulating normally Voiding: no voiding problems Passing Gas:: Yes Diet Tolerance:: regular diet Lochia:: Moderate Feeding Type:: breast feeding pain well controlled with Motrin Review of Systems -Denies fever or chills -Denies dyspnea, chest pain, or palpitations -Denies lightheadedness/dizziness -Denies dysuria -Denies headache or changes in vision Physical Exam <Miko Rose DO - Last Filed: 04/25/24 07:54> General: Alert and oriented. No acute distress Cardiac: Regular rate and rhythm, no murmurs appreciated Respiratory: Lungs clear to auscultation bilaterally, No increased work of breathing Abdominal: Soft, non-distended. Bowel sounds present. Uterus: Uterine fundus firm, palpable below umbilicus, significant tenderness to palpation. Incision site clean, dry, intact Extremities: No lower extremity edema appreciated, calves non-tender to palpation bilaterally Results & Data <Miko Rose DO - Last Filed: 04/25/24 07:54> Vital Signs (Past 12 Hours) Vital Signs Temp Pulse Resp BP Pulse Ox O2 Del Method 04/25/24 04:50 36.4 C L 85 16 104/70 100 Room Air 04/24/24 20:25 36.5 C 84 18 95/63 L 100 Room Air Supervising Physician <Francy Hernández MD, FACOG - Last Filed: 04/25/24 08:04> Co-Signing Physician Notes Resident Physician Supervision Note: I was present with Dr. Rose during the history and exam. I discussed the case with the resident and agree with the findings and plan as documented in the note. Any exceptions or clarifications are listed here: pt doing well, eating, voiding, ambulating. tolerating her hgb of 7.1. no palpitations. was getting iron infusions prior to delivery due to this sx. she would like to be dc'd to go see baby currently in [place]. she says he is doing ok. getting tube feeding due to poor gag reflex. abd soft ff 1` down, mild appropriate tenderness, no rebound. ext nt calves. pod#2 s/p c/s will dc home. instructions have been previously reviewed script. sent by yest provider. rec 6wk check, instructions reviewed. breastpumping, rh pos. Documented By: Francy Hernández MD, FACOG Resident Activity Tracking <Miko Rose, DO - Last Filed: 04/25/24 07:54> Resident Involvement: Resident Care Provided Care Provided: OB Delivery
[2024-04-25 07:50] LABS: Hematocrit (blood only) 21.4 % (37.0-47.0)
[2024-04-25 09:11] VITALS: BP 97/64; PULSE 80; RESP 18; TEMP 97.7
[2024-04-25] MEDS ORDERED: bisacodyL 10 MG SUPP PR PRN (12:14)
== END 2024-04-25 14:35 | disposition home or self-care (01) | DRG 788 ==
LOC: OPB 04:42 → 4S1 04:46 → 4E2 04-23 17:10